=== PATIENT | female | born 1950 | race Caucasian/White ===

== ENCOUNTER → 2023-09-22 14:04 | Outpatient (REF) | payer MEDICARE, OTHER, SELFPAY | LOC: WDC 14:04 | PROVIDERS: ATTENDING PHYSICIAN Nurse Practitioner Adult Health | DX: Z12.31 Encounter for screening mammogram for malignant neoplasm of breast (principal) | CPT/HCPCS: 77063; 77067 ==

== ENCOUNTER → 2024-07-28 15:39 | Outpatient (REF) | payer MEDICARE, OTHER, SELFPAY | LOC: RCS 15:39 | PROVIDERS: ATTENDING PHYSICIAN Internal Medicine Cardiovascular Disease; FAMILY PHYSICIAN Nurse Practitioner Adult Health | DX: R06.02 Shortness of breath (principal) | CPT/HCPCS: 93306 ==

== ENCOUNTER → 2024-10-25 12:01 | Outpatient (REF) | payer MEDICARE, OTHER, SELFPAY | LOC: WDC 12:01 | PROVIDERS: ATTENDING PHYSICIAN Nurse Practitioner Adult Health | DX: Z12.31 Encounter for screening mammogram for malignant neoplasm of breast (principal) | CPT/HCPCS: 77063; 77067 ==